=== PATIENT | male | born 1990 | race Hispanic/Latino ===

== ENCOUNTER 2019-05-11 16:10 | Inpatient (IN) | payer SELFPAY ==
[2019-05-11 16:43] LABS: #Basophils 0.1 thou/uL (0.0-0.2); #Eosinphils 0.4 thou/uL (0.0-0.7); #Lymphocytes 2.2 thou/uL (1.20-3.40); #Neutrophils 8.6 thou/uL (1.40-6.50); %Basophils 0.6 % (0.0-1.0); %Lymphocytes 17.9 % (21.0-51.0); %Monocytes 8.1 % (0.0-10.0); %Neutrophils 70.5 % (42.0-75.0); Hemoglobin 15.7 g/dL (14.0-18.0); Mean Corpuscular HGB CONC 34.3 g/dL (32.0-36.0); Mean Corpuscular Hemoglobin 29.4 pg (27.0-31.0); Mean Corpuscular Volume 85.7 fL (78.0-98.0); Mean Platelet Volume 7.3 fL (7.4-10.4); Platelet Count 285 thou/uL (130-400); RBC Distribution Width 11.2 % (11.5-14.5); Red Blood Cell (RBC) Count 5.34 mill/uL (4.70-6.10); White Blood Cell (WBC) Count 12.2 thou/uL (4.8-10.8)
[2019-05-11 17:03] LABS: ALT (SGPT) 37 U/L (8-55); AST (SGOT) 27 U/L (5-34); Albumin 4.4 g/dL (3.5-5.0); Alkaline Phosphatase 130 U/L (40-110); Anion Gap 12 mmol/L (10-20); BUN (Urea Nitrogen) 10 mg/dL (8.9-20.6); Bilirubin, Total 0.5 mg/dL (0.2-1.2); Calc. Creatinine Clearance 0 mL/min (70-130); Calcium 9.6 mg/dL (7.8-10.44); Carbon Dioxide 30 mmol/L (22-29); Chloride 100 mmol/L (98-107); Estimated GFR-MDRD Greater than 90; Globulin 3.9 g/dL (2.4-3.5); Glucose 97 mg/dL (70-105); Lipase 739 U/L (8-78); Protein, Total 8.3 g/dL (6.0-8.3); Sodium 138 mmol/L (136-145)
[2019-05-11] MEDS ORDERED: Morphine 4 MG/ML VIAL ONE (18:48)
--- NOTE | 2019-05-11 20:22 | PDOC.FPRHP ---
- History of Present Illness Chief Complaint: abdominal pain x 3 days History of Present Illness: Manpreet is a previously healthy 29yo male who presented to the ED for 3 days of increasing abdominal pain that waxes and wanes. When it comes on it lasts for hours. Nothing he has tried has alleviated the pain and nothing seems to make it worse. The pain radiates to his back. He has never had pain like this before. He does not believe it is related to eating, this morning he ate 2 cookies and a glass of milk. Otherwise he has not had an appetite today. ED Course: RUQ US, 8mg morphine, 1L NS - Allergies/Adverse Reactions Allergies Allergy/AdvReac Type Severity Reaction Status Date / Time No Known Drug Allergies Allergy Verified 05/11/19 22:54 - Home Medications Medication Instructions Recorded Confirmed Type diphenhydrAMINE [Benadryl] 25 mg PO HS PRN 05/11/19 05/11/19 History - History PMHx: None History of elevated triglycerides PSHx: None FHx: Non-contributory Social: Smokes 1 pack of cigarettes per week. Drinks on the weekends, 1 day/week (12 pack) Denies illicit drug use. - Review of Systems General: reports: fever/chills. denies: weight/appetite/sleep changes, night sweats Eyes: denies: eye pain, vision changes ENT: denies: nasal congestion, rhinorrhea Respiratory: denies: cough, congestion Cardiovascular: denies: chest pain, palpitation, edema Gastrointestinal: reports: abdominal pain. denies: nausea, vomiting, diarrhea, constipation Genitourinary: denies: incontinence, dysuria, polyuria Skin: denies: rashes, lesions Musculoskeletal: denies: pain, tenderness Neurological: denies: numbness, syncope, weakness - Vital signs BP: [] HR: [] RR: [] Tmax: [] Pox: []% on [] Wt: [] - Physical Exam Constitutional: NAD, awake, alert and oriented -Constitutional: diaphoretic HEENT: normocephalic and atraumatic, PERRLA, EOMI, conjunctiva clear, grossly normal vision, grossly normal hearing, MMM Neck: supple, trachea midline Chest: no-tender to palpation Heart: RRR, normal S1/S2, no murmurs/rubs/gallops, pulses present Lungs: CTAB, no respiratory distress, good air movement, no rales/rhonchi, no wheezing Abdomen: soft, bowel sounds present, no masses/distention -Abdomen: TTP on left side, negative Metz sign Musculoskeletal: normal structure, normal tone Neurological: no focal deficit Skin: no rash/lesions, good turgor Heme/Lymphatic: no unusual bruising or bleeding, no purpura, no petechia Psychiatric: normal mood and affect, good judgment and insight, intact recent and remote memory FMR H&P: Results - Labs Result Diagrams: 05/11/19 16:30 05/11/19 16:30 Lab results: WBC 12.2 thou/uL (4.8-10.8) H 05/11/19 16:30 Hgb 15.7 g/dL (14.0-18.0) 05/11/19 16:30 Hct 45.7 % (42.0-52.0) 05/11/19 16:30 MCV 85.7 fL (78.0-98.0) 05/11/19 16:30 Plt Count 285 thou/uL (130-400) 05/11/19 16:30 Neutrophils % 70.5 % (42.0-75.0) 05/11/19 16:30 Sodium 138 mmol/L (136-145) 05/11/19 16:30 Potassium 4.0 mmol/L (3.5-5.1) 05/11/19 16:30 Chloride 100 mmol/L (98-107) 05/11/19 16:30 Carbon Dioxide 30 mmol/L (22-29) H 05/11/19 16:30 BUN 10 mg/dL (8.9-20.6) 05/11/19 16:30 Creatinine 0.81 mg/dL (0.7-1.3) 05/11/19 16:30 Glucose 97 mg/dL (70-105) 05/11/19 16:30 Calcium 9.6 mg/dL (7.8-10.44) 05/11/19 16:30 Total Bilirubin 0.5 mg/dL (0.2-1.2) 05/11/19 16:30 AST 27 U/L (5-34) 05/11/19 16:30 ALT 37 U/L (8-55) 05/11/19 16:30 Alkaline Phosphatase 130 U/L (40-110) H 05/11/19 16:30 Serum Total Protein 8.3 g/dL (6.0-8.3) 05/11/19 16:30 Albumin 4.4 g/dL (3.5-5.0) 05/11/19 16:30 Lipase 739 U/L (8-78) H 05/11/19 16:30 - Radiology Interpretation US - abdomen Status: report reviewed by me (Negative for gallstones or CBD dilation. Fatty infiltration of liver.) FMR H&P: A/P - Problem List (1) Acute pancreatitis Current Visit: Yes Status: Acute Code(s): K85.90 - ACUTE PANCREATITIS WITHOUT NECROSIS OR INFECTION, UNSP - Plan Acute pancreatitis - Elevated lipase. Idiopathic vs hypertriglyceridemia. He drinks alcohol on the weekends. - NPO tonight, tomorrow bland full liquid diet and advance as tolerated. - NS @ 125mL/hour - Fasting lipid profile in the AM. - Zofran, tylenol and morphine prn Disposition/LOS: Dispo: Stable, Inpatient Code: Full VTE: SCDs FMR H&P: Upper Level - Plan Date/Time: 05/11/192020 PCP: MALCOLM HPI: This is a 29 yo M who comes in with 3 days of worsening epigastric pain radiating around to the back. The pain lasts a few hours at a time and comes and goes randomly. He states that nothing makes it better/worse including eating or movement. Decreased appetite. The patient states the pain is 4/10 at the moment. He drinks heavily on Friday nights. Denies drug use. REVIEW OF SYSTEMS: Gen: no fever, chills, or sweats Neuro: denies headache Eyes: no visual changes ENT: no hearing changes, no sore throat, no congestion Resp: denies cough, SOB Card: denies murmurs, rubs, gallups GI: see hpi Heme: no easy bruising/bleeding, no blood thinners Skin: no rash, no erythema PHYSICAL EXAMINATION: General: NAD, alert and oriented x3 HEENT: PERRLA, EOMI, normal sclera, oropharynx without erythema or exudate Neck: Supple. Full ROM. Heart/Cardiovascular System: RRR, Cap refill < 3 seconds, no rub, no murmur Lungs/Respiratory System: CTA-B, no resp distress Abdomen/Gastro-Intestinal System: no abdominal tenderness, normal bowel sounds Extremities: Warm extremities. No cyanosis or edema Neuro: No gross deficits appreciated. CN 2-12 grossly intact Psychiatry: Awake, Alert and cooperative with exam Skin: No lesions, rashes, or ulcers Musculoskeletal: Full ROM A/P: # Pancreatitis - Bisap:0, lipase 739 - RUQ US shows no acute process, suggests fatty liver - FLP for AM - NPO, fluids, pain control. Anticipate advance to blands in AM. # Fatty liver - FLP pendig Fluids: NS 125 ml/hr Code status: full PPx: lovenox Dispo: 1-2 days Addendum - Attending - Attending Attestation Date/Time: 05/12/19 1786 I personally evaluated the patient and discussed the management with Dr. Lewis on 05/11/2019 I agree with the History, Examination, Assessment and Plan documented above with any addition or exceptions noted below -29yo male who presented to the ED for 3 days of increasing abdominal pain located on left flank that waxes and wanes. When it comes on it lasts for hours. Nothing he has tried has alleviated the pain and nothing seems to make it worse. The pain radiates to his back. He has never had pain like this before. He does not believe it is related to eating, this morning he ate 2 cookies and a glass of milk. Denies any fever, chills, N/V/D. No ill contacts. PMH/PSH/Meds/SH reviewed and agree with resident's documentation. Afebrile VSS Exam repeated by me and agree with resident's findings. Labs: WBC=12.2, H/H=15.7/45.7, Kcz=957, Lu=687, K=4.0, Cl= 100, CO2=30, BUN/Cr=10/0.81, Gluc=97, AST/ALT=27/37, ufphzp=158. RUQ USG - mild hepatomegaly with diffuse fatty infiltration. A/P: 1) Abd pain uncertain etiology- lipase elevated but no other symptoms c/w pancreatitis. Will monitor overnight; po challenge. Consider etiology such as gastritis/PUD.
--- NOTE | 2019-05-11 20:28 | ULT ---
RIGHT UPPER QUADRANT ULTRASOUND: 05/11/19 HISTORY: Right upper quadrant abdominal pain. FINDINGS: The liver is enlarged in craniocaudal dimensions measuring approximately 19 cm. The liver also demons trates diffuse increased echogenicity most compatible with diffuse fatty infiltration. No focal hepat ic lesion is seen. No gallbladder calculi are seen, and there is no gallbladder wall thickening or pericholecystic fluid . The common duct is normal in caliber measuring 2 mm in diameter. The limited visualized portions of the pancreas, visualized portions of the IVC, and right kidney dem onstrate a normal sonographic appearance. The right kidney measures 10.8 cm in length. IMPRESSION: 1. Mild hepatomegaly with diffuse fatty infiltration of the liver. 2. No gallbladder calculi are seen and the common duct is normal in caliber. POS: VAL
[2019-05-11 21:58] VITALS: BMI 38.0
[2019-05-11] MEDS ORDERED: Morphine 2 MG/ML SYRINGE SLOW IVP PRN (21:59)
[2019-05-11] MEDS ORDERED: Morphine 4 MG/ML VIAL SLOW IVP PRN (22:00)
[2019-05-11] MEDS ORDERED: Acetaminophen 325 MG TAB PO PRN ×2 (22:02→22:20)
[2019-05-11] MEDS ORDERED: Ondansetron ODT 4 MG TAB SL PRN (22:02)
[2019-05-11] MEDS ORDERED: Sodium Chloride 0.9% 1,000 ML IV SCH (22:02)
[2019-05-11] MEDS ORDERED: Ondansetron PF 4 MG/2 ML Vial IVP PRN ×2 (22:02→22:20)
[2019-05-11] MEDS: Sodium Chloride 0.9% 1,000 ML IV SCH (22:37)
[2019-05-11] MEDS: Morphine 2 MG/ML SYRINGE SLOW IVP PRN (22:42)
[2019-05-12] MEDS: Morphine 2 MG/ML SYRINGE SLOW IVP PRN ×3 (04:13→20:42)
[2019-05-12] MEDS: Sodium Chloride 0.9% 1,000 ML IV SCH ×2 (05:46→17:14)
[2019-05-12 06:42] LABS: Cardiac Risk 4.2 (Less than 4.5)
--- NOTE | 2019-05-12 06:42 | PDOC.FM ---
Addendum entered and electronically signed by Maribel Barton MD 05/12/19 10 :36: Please correct: pt complaining of LEFT flank and abdominal pain. Original Note: - Subjective Subjective: Pt is eating liquid diet this AM. Denies N, V. Continued abdominal pain which is located on R side, RLQ and motions over his right flank. He asks for more pain medicine. Denies BM. - Objective MAR Reviewed: Yes Vital Signs & Weight: Vital Signs (12 hours) Temp Pulse Resp BP Pulse Ox 05/12/19 04:49 98.0 F 74 20 120/81 94 L 05/11/19 23:45 98.5 F 99 20 112/75 92 L 05/11/19 22:22 96 05/11/19 21:59 98.5 F 85 18 124/85 96 Weight Weight 110.1 kg Result Diagrams: 05/11/19 16:30 05/11/19 16:30 Phys Exam - Physical Examination Constitutional: NAD Respiratory: no wheezing, clear to auscultation bilateral Cardiovascular: RRR, no significant murmur Gastrointestinal: soft, non-tender, no distention, positive bowel sounds Psychiatric: normal affect, A&O x 3 Dx/Plan (1) Acute pancreatitis Code(s): K85.90 - ACUTE PANCREATITIS WITHOUT NECROSIS OR INFECTION, UNSP Status: Acute (2) Tobacco use Code(s): Z72.0 - TOBACCO USE Status: Acute - Plan Plan: Acute pancreatitis, 1st episode - Elevated lipase. Initially suspected hypertriglyceridemia, however TG resulted this AM at 114. Cholesterol is 174. - He drinks alcohol on the weekends. Do not suspect alcoholic pancreatitis - RUQ U/S without gallstones. Showed fatty liver. - Other items in differential include trauma (denies), steroids (denies), scorpion bites (unknown, but denies), autoimmune disease (none known), ERCP ( did not have), drugs/medications (does not take). - Currently on Full liquid diet. - NS @ 125mL/hour - Zofran, tylenol and morphine prn Tobacco use - counseled on cessation Disposition/LOS: Dispo: Stable, Inpatient Code: Full VTE: SCDs Addendum - Attending - Attending Attestation Date/Time: 05/12/19 1150 I personally evaluated the patient and discussed the management with Dr. Barton. I agree with the History, Examination, Assessment and Plan documented above with any addition or exceptions noted below. Patient here initialliy for treatment of pancreatitis. However, he is able to tolerate diet of any consistency, and the diet does not affect his pain. Further , his pain is L flank and side and NOT in the midepigastric area. Lipase elevated but otherwise labs are normal. He is on IV fluids. Tolerating clears well. He will have GI cocktail to rule in/out gastritis or PUD as possible cause. If that does not alleviate his pain, will consider CT abdomen to further characterize. Continue diet as tolerated.
[2019-05-12] MEDS ORDERED: Lidocaine 2% Viscous Solution 20 ML, Aluminum & Magnesium Hydroxide 30 ML, Donnatal Eli... SSW SCH (10:34)
[2019-05-12 12:25] LABS: Bacteria/HPF None Seen HPF (None Seen); Bilirubin Negative (Negative); Blood, Urine Negative (Negative); Clarity Clear (Clear); Glucose, Urine (Dipstick) Normal (Negative); Leukocyte Negative Leu/uL (Negative); Nitrite Negative (Negative); Protein, Urine (Dipstick) Negative (Neg-Trace); RBC/HPF 0-3 HPF (0-3); Squamous Epithelial None Seen HPF (0-3); Urobilinogen Normal mg/dL (Less than 2); WBC/HPF 0-3 HPF (0-3)
[2019-05-12] MEDS: Simethicone Chewable 80 MG TAB PO SCH ×3 (13:17→20:42)
[2019-05-12] MEDS ORDERED: FLU VACC QS2019-20(6MOS UP)/PF 60 MCG/0.5 ML SYRINGE IM ONE (21:00)
[2019-05-13] MEDS: Sodium Chloride 0.9% 1,000 ML IV SCH (01:31)
--- NOTE | 2019-05-13 05:44 | PDOC.FM ---
- Subjective Subjective: Pt is feeling well this morning. Says his Left side/flank pain is improved. He wonders if it is a muscle. Hurts when he moves. Reports 1 BM yesterday. Simethicone helped. He reports eating regular dinner last night and tolerated it. He is uninsured and does not have a PCP. - Objective MAR Reviewed: Yes Vital Signs & Weight: Vital Signs (12 hours) Temp Pulse Resp BP Pulse Ox 05/12/19 20:03 97.5 F L 84 20 105/69 94 L 05/12/19 19:44 94 L Weight Admit Weight 109.769 kg Weight 110.1 kg I&O: 05/11/19 05/12/19 05/13/19 06:59 06:59 06:59 Intake Total 1979 Balance 1979 Result Diagrams: 05/11/19 16:30 05/11/19 16:30 Phys Exam - Physical Examination Constitutional: NAD Respiratory: no wheezing, clear to auscultation bilateral Cardiovascular: RRR, no significant murmur Gastrointestinal: soft, non-tender Neurological: non-focal Psychiatric: normal affect, A&O x 3 Dx/Plan (1) Acute pancreatitis Code(s): K85.90 - ACUTE PANCREATITIS WITHOUT NECROSIS OR INFECTION, UNSP Status: Ruled-out (2) Tobacco use Code(s): Z72.0 - TOBACCO USE Status: Acute (3) Gastritis Code(s): K29.70 - GASTRITIS, UNSPECIFIED, WITHOUT BLEEDING Status: Acute - Plan Plan: Acute pancreatitis, ruled out Gastritis - Elevated lipase. Initially suspected hypertriglyceridemia pancreatitis, however TG resulted this AM at 114. Cholesterol is 174. - He drinks alcohol on the weekends. Do not suspect alcoholic pancreatitis. Other items in differential include trauma (denies), steroids (denies), scorpion bites (unknown , but denies), autoimmune disease (none known), ERCP (did not have), drugs/ medications (does not take). - RUQ U/S without gallstones. Showed fatty liver. - Currently on regular diet. Will see how he tolerates breakfast. - Pain has improved w/ GI cocktail, simethicone. Had BM. - H Pylori stool antigen negative. - Discontinued fluids. - Discontinued morphine. - UA WNL Tobacco use - counseled on cessation Disposition/LOS: likely d/c pt today. He can follow up w/ [facility] and apply for sliding scale or [facility] as we will likely send him w/ some protonix or other medication for gastritis. Dispo: Stable, Inpatient Code: Full VTE: SCDs Addendum - Attending - Attending Attestation Date/Time: 05/13/19 1356 I personally evaluated the patient and discussed the management with Dr. Barton. I agree with the History, Examination, Assessment and Plan documented above with any addition or exceptions noted below. Patient doing well, pain resolved. Doubt this was pancreatitis due to history and character of the pain. Stable for discharge with outpatient follow up.
[2019-05-13] MEDS: Simethicone Chewable 80 MG TAB PO SCH (09:14)
[2019-05-13 11:12] VITALS: BP 143/78; TEMP 98.4
== END 2019-05-13 11:20 | disposition home or self-care (01) | DRG 392 ==
LOC: ERS 16:10 → T4-A 21:56
PROVIDERS: ADMIT Family Medicine; ATTEND Family Medicine
DX: K29.70 Gastritis, unspecified, without bleeding (principal); K76.0 Fatty (change of) liver, not elsewhere classified; Z72.0 Tobacco use; Z71.6 Tobacco abuse counseling
CPT/HCPCS: 36415; 76705; 80053; 80061; 81001; 83690; 85025; 87338; 96361; 96374; J2270

== ENCOUNTER 2021-10-10 08:08 | Emergency (ER) | payer SELFPAY ==
[2021-10-10 08:25] LABS: #Basophils 0.1 thou/uL (0.0-0.2); #Eosinphils 0.4 thou/uL (0.0-0.7); #Lymphocytes 2.5 thou/uL (1.20-3.40); #Monocytes 0.6 thou/uL (0.11-0.59); #Neutrophils 3.7 thou/uL (1.40-6.50); %Basophils 1.3 % (0.0-1.0); %Eosinophils 5.8 % (0.0-10.0); %Lymphocytes 34.2 % (21.0-51.0); %Neutrophils 50.7 % (42.0-75.0); Hemoglobin 18.1 g/dL (14.0-18.0); Mean Corpuscular HGB CONC 34.1 g/dL (32.0-36.0); Mean Corpuscular Hemoglobin 29.7 pg (27.0-31.0); Mean Corpuscular Volume 87.2 fL (78.0-98.0); Mean Platelet Volume 8.5 fL (7.4-10.4); Platelet Count 231 thou/uL (130-400); RBC Distribution Width 11.8 % (11.5-14.5); Red Blood Cell (RBC) Count 6.09 mill/uL (4.70-6.10); White Blood Cell (WBC) Count 7.3 thou/uL (4.8-10.8)
[2021-10-10] MEDS ORDERED: Ketorolac Tromethamine 30 MG/ML VIAL ONE (08:30)
[2021-10-10] MEDS ORDERED: diphenhydrAMINE 50 MG/ML VIAL ONE (08:30)
[2021-10-10] MEDS ORDERED: Metoclopramide HCl 10 MG/2 ML VIAL ONE (08:31)
[2021-10-10] MEDS ORDERED: Acetaminophen 500 MG TAB ONE (08:31)
[2021-10-10 08:39] LABS: INR-International Normal Ratio 0.9; Prothrombin Time 12.7 sec (12.0-14.7)
[2021-10-10 08:40] LABS: PTT 25.4 sec (22.9-36.1)
[2021-10-10 08:57] LABS: ALT (SGPT) 267 U/L (8-55); AST (SGOT) 112 U/L (5-34); Albumin 4.6 g/dL (3.5-5.0); Alkaline Phosphatase 213 U/L (40-110); Anion Gap 13 mmol/L (10-20); BUN (Urea Nitrogen) 12 mg/dL (8.9-20.6); Bilirubin, Total 0.7 mg/dL (0.2-1.2); Calc. Creatinine Clearance 0 mL/min (70-130); Calcium 10.1 mg/dL (7.8-10.44); Carbon Dioxide 29 mmol/L (22-29); Chloride 97 mmol/L (98-107); Globulin 3.9 g/dL (2.4-3.5); Glucose 389 mg/dL (70-105); Potassium 3.9 mmol/L (3.5-5.1); Protein, Total 8.5 g/dL (6.0-8.3); Sodium 135 mmol/L (136-145)
== END 2021-10-10 10:38 | disposition home or self-care (01) ==
LOC: ERS 08:08
DX: K76.9 Liver disease, unspecified (principal); E11.65 Type 2 diabetes mellitus with hyperglycemia; F17.210 Nicotine dependence, cigarettes, uncomplicated
CPT/HCPCS: 36416; 80053; 85025; 85610; 85730; 93005; 96374; 96375; J1200; J1885; J2765